=== PATIENT | male | born 1940 | race Caucasian/White ===

== ENCOUNTER → 2017-09-11 10:12 | Outpatient (CLI) | payer MEDICARE, OTHER | END | disposition home or self-care (01) | LOC: D.CT 10:00 → D.MRI 10:00 → D.CT 10:12 | DX: M54.12 Radiculopathy, cervical region (principal) ==

== ENCOUNTER → 2019-04-15 10:19 | Outpatient (CLI) | payer MEDICARE, BC | END | disposition home or self-care (01) | LOC: D.CT 10:19 | PROVIDERS: ATTEND Family Medicine | DX: R04.2 Hemoptysis (principal) ==